=== PATIENT | male | born 1940 | race Caucasian/White ===

== ENCOUNTER 2019-07-15 13:05 | Emergency (ER) | payer BC, MEDICARE ==
[~2019-07-15] VITALS: Ht 188 cm; Wt 111.1 kg
[2019-07-15] MEDS ORDERED: TDAP DIPH,PERTUSS,TET VAC/PF 0.5 ML DISP.SYRIN IM ONE ×2 (13:45→13:49)
--- NOTE | 2019-07-15 13:53 | NUR ---
Wound care performed to superficial skin tear or right lateral forearm. Wound approximated with steri strips after thorough irrigation. Dry dressing applied. Patient advised of percautions and wound care instructions. Patient expressed understanding.
[2019-07-15 14:01] VITALS: BP 144/84
--- NOTE | 2019-07-15 14:01 | NUR ---
Patient discharged to home in stable conditon. Written and verbal after care instructions given. Patient verbalizes understanding of instructions.
== END 2019-07-15 14:01 | disposition home or self-care (01) ==
LOC: ER 13:05
DX: S51.811A Laceration without foreign body of right forearm, initial encounter (principal); E78.5 Hyperlipidemia, unspecified; J44.9 Chronic obstructive pulmonary disease, unspecified; I10 Essential (primary) hypertension; Z79.899 Other long term (current) drug therapy; Z79.84 Long term (current) use of oral hypoglycemic drugs; W22.8XXA Striking against or struck by other objects, initial encounter; Y93.89 Activity, other specified; Y92.89 Other specified places as the place of occurrence of the external cause; Y99.8 Other external cause status
CPT/HCPCS: 90715; A4663

== ENCOUNTER 2019-07-21 15:14 | Outpatient (CLI) | payer MEDICARE, BC | END 2019-07-21 23:59 | disposition home or self-care (01) | LOC: RAD 15:14 | DX: S62.101A Fracture of unspecified carpal bone, right wrist, initial encounter for closed fracture (principal); M85.841 Other specified disorders of bone density and structure, right hand; M19.031 Primary osteoarthritis, right wrist; M79.89 Other specified soft tissue disorders; X58.XXXA Exposure to other specified factors, initial encounter; Y93.89 Activity, other specified; Y92.89 Other specified places as the place of occurrence of the external cause; Y99.8 Other external cause status | CPT/HCPCS: 73110 ==